=== PATIENT | female | born 1940 | race Caucasian/White ===

== ENCOUNTER 2017-05-14 17:58 | Emergency (ER) | payer MEDICARE | END 2017-05-14 18:33 | disposition home or self-care (01) | LOC: BURERS 17:58 | DX: I10 Essential (primary) hypertension (principal); Z79.899 Other long term (current) drug therapy | CPT/HCPCS: 99283 ==

== ENCOUNTER 2018-07-04 18:01 | Emergency (ER) | payer MEDICARE ==
[2018-07-04 18:40] LABS: #Eosinphils 0.3 thou/uL (0.0-0.7); #Lymphocytes 0.7 thou/uL (1.20-3.40); #Neutrophils 4.5 thou/uL (1.40-6.50); %Basophils 0.6 % (0.0-1.0); %Eosinophils 5.8 % (0.0-10.0); %Lymphocytes 12.1 % (21.0-51.0); %Monocytes 0.8 % (0.0-10.0); %Neutrophils 80.8 % (42.0-75.0); Hemoglobin 12.5 g/dL (12.0-16.0); Mean Corpuscular HGB CONC 33.1 g/dL (32.0-36.0); Mean Corpuscular Hemoglobin 29.2 pg (27.0-31.0); Mean Corpuscular Volume 88.3 fL (78.0-98.0); Mean Platelet Volume 7.4 fL (7.4-10.4); Platelet Count 238 thou/uL (130-400); RBC Distribution Width 11.9 % (11.5-14.5); Red Blood Cell (RBC) Count 4.29 mill/uL (4.20-5.40); White Blood Cell (WBC) Count 5.5 thou/uL (4.8-10.8)
[2018-07-04 18:50] LABS: Clarity Clear (Clear); Glucose, Urine (Dipstick) Negative (Negative); Leukocyte Trace (Negative); Nitrite Negative (Negative); Protein, Urine (Dipstick) Negative (Neg-Trace); Urobilinogen 0.2 mg/dL (0.2-1.0)
[2018-07-04 18:51] LABS: Bilirubin Negative (Negative); Blood, Urine Trace (Negative)
[2018-07-04 18:54] LABS: Bacteria/HPF 2+ HPF (None Seen); RBC/HPF 0-3 HPF (0-3); Squamous Epithelial 0-3 HPF (0-3); WBC/HPF 0-3 HPF (0-3)
[2018-07-04 18:57] LABS: ALT (SGPT) 12 U/L (8-55); AST (SGOT) 21 U/L (5-34); Alkaline Phosphatase 88 U/L (40-150); Anion Gap 14 mmol/L (10-20); BUN (Urea Nitrogen) 22 mg/dL (9.8-20.1); Bilirubin, Total 0.6 mg/dL (0.2-1.2); Calc. Creatinine Clearance 0 mL/min (70-130); Calcium 9.3 mg/dL (7.8-10.44); Carbon Dioxide 26 mmol/L (23-31); Chloride 105 mmol/L (98-107); Estimated GFR-MDRD 45; Globulin 2.8 g/dL (2.4-3.5); Glucose 85 mg/dL (83-110); Protein, Total 6.8 g/dL (6.0-8.3); Sodium 141 mmol/L (136-145)
[2018-07-04] MEDS ORDERED: Acetaminophen 325 MG TAB ONE (19:39)
[2018-07-04 23:10] LABS: Specific Gravity, Urine 1.015 (1.005-1.030)
== END 2018-07-04 19:53 | disposition home or self-care (01) ==
LOC: BURERS 18:01
DX: B34.9 Viral infection, unspecified (principal)
CPT/HCPCS: 36415; 80053; 81003; 81015; 85025; 87077; 87086; 87186; 87804; 99284

== ENCOUNTER 2020-10-15 08:27 | Emergency (ER) | payer MEDICARE ==
--- NOTE | 2020-10-15 14:54 | CT ---
CT OF THE BRAIN WITHOUT CONTRAST: 10/15/20 The ventricles are normal in size for age and atrophy. There is no ventricular shift. No intracranial bleeding or extra-axial hematoma was seen. There is no sign of acute stroke, mass, or edema. An area of soft tissue swelling is seen just above the left eye over the left frontal bone. The underlying b one appears intact. No skull fractures were seen. The sphenoid sinus and mastoid air cells are clear, as are the visible paranasal sinuses. IMPRESSION: No acute intracranial findings. Preliminary report called to Joaquina in ER at 0854 on 10/15/20. POS: HOME
--- NOTE | 2020-10-15 14:56 | CT ---
CT OF THE FACIAL BONES WITHOUT CONTRAST: 10/15/[address] of the face was done for evaluation following trauma. An area of soft tissue swelling is seen just above the left orbit over the left frontal bone. The und erlying bone shows no fracture. The maxilla, mandible, zygomatic arches, and nasal bones all appear i ntact. The orbital rims appear intact. The paranasal sinuses are clear, though there is a retention c yst in the floor of the left maxillary sinus. IMPRESSION: No acute fracture seen. Preliminary report called to Joaquina in ER at 0854 on 10/15/20. POS: HOME
== END 2020-10-15 09:09 | disposition home or self-care (01) ==
LOC: BURERS 08:27
DX: S00.83XA Contusion of other part of head, initial encounter (principal); W01.198A Fall on same level from slipping, tripping and stumbling with subsequent striking against other object, initial encounter
CPT/HCPCS: 70450; 70486

== ENCOUNTER 2023-09-15 16:50 | Emergency (ER) | payer MEDICARE ==
[2023-09-15 17:22] LABS: #Basophils 0.1 thou/uL (0.0-0.2); #Eosinphils 0.6 thou/uL (0.0-0.7); #Lymphocytes 1.1 thou/uL (1.20-3.40); #Monocytes 0.6 thou/uL (0.11-0.59); #Neutrophils 2.5 thou/uL (1.40-6.50); %Basophils 1.2 % (0.0-1.0); %Eosinophils 12.8 % (0.0-10.0); %Lymphocytes 22.2 % (21.0-51.0); %Monocytes 12.2 % (0.0-10.0); %Neutrophils 51.6 % (42.0-75.0); Hematocrit 39.4 % (36.0-47.0); Hemoglobin 13.1 g/dL (12.0-16.0); Mean Corpuscular HGB CONC 33.3 g/dL (32.0-36.0); Mean Corpuscular Volume 93.1 fl (78.0-98.0); Mean Platelet Volume 8.1 fL (7.4-10.4); Platelet Count 270 10x3/uL (130-400); RBC Distribution Width 11.1 % (11.5-14.5); Red Blood Cell (RBC) Count 4.23 mill/uL (4.20-5.40); White Blood Cell (WBC) Count 4.8 10x3/uL (4.8-10.8)
[2023-09-15 17:37] LABS: Anion Gap 13 mmol/L (10-20); BUN (Urea Nitrogen) 22 mg/dL (9.8-20.1); Calc. Creatinine Clearance 0 mL/min (70-130); Calcium 9.5 mg/dL (7.8-10.44); Carbon Dioxide 24 mmol/L (23-31); Chloride 103 mmol/L (98-107); Estimated GFR 38; Glucose 117 mg/dL (83-110); Potassium 3.9 mmol/L (3.5-5.1); Sodium 136 mmol/L (136-145)
== END 2023-09-15 17:42 | disposition home or self-care (01) ==
LOC: BURERS 16:50
DX: I10 Essential (primary) hypertension (principal)
CPT/HCPCS: 36415; 80048; 85025; 93005

== ENCOUNTER 2024-02-20 13:13 | Emergency (ER) | payer MEDICARE ==
[2024-02-20 14:08] LABS: #Basophils 0.1 thou/uL (0.0-0.2); #Eosinphils 0.3 thou/uL (0.0-0.7); #Monocytes 0.6 thou/uL (0.11-0.59); #Neutrophils 3.1 thou/uL (1.40-6.50); %Basophils 1.3 % (0.0-1.0); %Eosinophils 6.7 % (0.0-10.0); %Lymphocytes 19.1 % (21.0-51.0); %Monocytes 11.1 % (0.0-10.0); %Neutrophils 61.9 % (42.0-75.0); Hematocrit 33.7 % (36.0-47.0); Hemoglobin 10.9 g/dL (12.0-16.0); Mean Corpuscular HGB CONC 32.5 g/dL (32.0-36.0); Mean Corpuscular Hemoglobin 30.5 pg (27.0-31.0); Mean Corpuscular Volume 93.8 fl (78.0-98.0); Mean Platelet Volume 6.8 fL (7.4-10.4); Platelet Count 256 10x3/uL (130-400); Red Blood Cell (RBC) Count 3.59 mill/uL (4.20-5.40)
[2024-02-20 14:16] LABS: INR-International Normal Ratio 1.2; Prothrombin Time 14.9 sec (12.0-14.7)
[2024-02-20 14:17] LABS: PTT 30.8 sec (22.9-36.1)
[2024-02-20 14:26] LABS: ALT (SGPT) 14 U/L (8-55); AST (SGOT) 22 U/L (5-34); Albumin 3.5 g/dL (3.4-4.8); Alkaline Phosphatase 74 U/L (40-110); Anion Gap 12 mmol/L (10-20); BUN (Urea Nitrogen) 21 mg/dL (9.8-20.1); Bilirubin, Total 0.6 mg/dL (0.2-1.2); Calc. Creatinine Clearance 0 mL/min (70-130); Calcium 8.8 mg/dL (7.8-10.44); Carbon Dioxide 22 mmol/L (23-31); Chloride 110 mmol/L (98-107); Estimated GFR 41; Globulin 2.6 g/dL (2.4-3.5); Glucose 94 mg/dL (83-110); Potassium 4.3 mmol/L (3.5-5.1); Protein, Total 6.1 g/dL (5.8-8.1); Sodium 140 mmol/L (136-145)
== END 2024-02-20 14:43 | disposition home or self-care (01) ==
LOC: BURERS 13:13
DX: K64.4 Residual hemorrhoidal skin tags (principal)
CPT/HCPCS: 36415; 80053; 82274; 85025; 85610; 85730; 99283

== ENCOUNTER 2024-03-13 07:22 | Emergency (ER) | payer MEDICARE ==
[2024-03-13 07:53] LABS: #Basophils 0.1 thou/uL (0.0-0.2); #Eosinphils 0.1 thou/uL (0.0-0.7); #Lymphocytes 0.7 thou/uL (1.20-3.40); #Monocytes 0.3 thou/uL (0.11-0.59); #Neutrophils 4.4 thou/uL (1.40-6.50); %Basophils 1.5 % (0.0-1.0); %Eosinophils 2.1 % (0.0-10.0); %Lymphocytes 12.3 % (21.0-51.0); %Monocytes 5.1 % (0.0-10.0); Hematocrit 23.4 % (36.0-47.0); Hemoglobin 7.7 g/dL (12.0-16.0); Mean Corpuscular HGB CONC 32.8 g/dL (32.0-36.0); Mean Corpuscular Hemoglobin 30.8 pg (27.0-31.0); Mean Corpuscular Volume 93.8 fl (78.0-98.0); Mean Platelet Volume 7.5 fL (7.4-10.4); Platelet Count 277 10x3/uL (130-400); RBC Distribution Width 12.4 % (11.5-14.5); Red Blood Cell (RBC) Count 2.49 mill/uL (4.20-5.40); White Blood Cell (WBC) Count 5.5 10x3/uL (4.8-10.8)
[2024-03-13 08:10] LABS: ALT (SGPT) 17 U/L (8-55); AST (SGOT) 26 U/L (5-34); Albumin 4.1 g/dL (3.4-4.8); Alkaline Phosphatase 81 U/L (40-110); Anion Gap 15 mmol/L (10-20); BUN (Urea Nitrogen) 34 mg/dL (9.8-20.1); Bilirubin, Total 0.5 mg/dL (0.2-1.2); Calc. Creatinine Clearance 0 mL/min (70-130); Calcium 9.2 mg/dL (7.8-10.44); Carbon Dioxide 20 mmol/L (23-31); Chloride 109 mmol/L (98-107); Estimated GFR 32; Globulin 2.8 g/dL (2.4-3.5); Glucose 112 mg/dL (83-110); Potassium 4.1 mmol/L (3.5-5.1); Protein, Total 6.9 g/dL (5.8-8.1); Sodium 140 mmol/L (136-145)
[2024-03-13] MEDS ORDERED: Pantoprazole 40 MG VIAL ONE ×2 (08:38→08:56)
== END 2024-03-13 10:51 | disposition short-term general hospital (02) ==
LOC: BURERS 07:22
DX: D64.9 Anemia, unspecified (principal); K92.2 Gastrointestinal hemorrhage, unspecified
CPT/HCPCS: 36415; 36430; 71045; 80053; 82274; 85025; 86850; 86900; 86901; 93005; 94760; 96365; 96366; C9113; P9016

== ENCOUNTER 2025-05-28 10:09 | Outpatient (CLI) | payer MEDICARE | END 2025-05-28 10:10 | disposition home or self-care (01) | LOC: BURRAD 10:09 | PROVIDERS: ATTEND Family Medicine | DX: S60.221A Contusion of right hand, initial encounter (principal); M89.8X2 Other specified disorders of bone, upper arm; M19.031 Primary osteoarthritis, right wrist; M19.011 Primary osteoarthritis, right shoulder; M19.041 Primary osteoarthritis, right hand ==